=== PATIENT | male | born 1970 | race Caucasian/White ===

== ENCOUNTER → 2018-04-01 | Outpatient (CLI) | payer BC | LOC: COL.CARD 03-20 13:00 | DX: R40.20 Unspecified coma (principal) ==

== ENCOUNTER 2020-08-17 16:31 | Emergency (ER) | payer OTHER ==
[~2020-08-17] VITALS: Ht 170.2 cm; Wt 90.9 kg
[2020-08-17 16:34] VITALS: TEMP 98.6
[2020-08-17 18:04] LABS: BASO # 0.1 (0.0-0.2); BASO % 0.4 % (0.0-2.0); EOS # 0.1 (0.0-0.7); EOS % 0.3 % (0-4.0); GRAN # 15.2 (1.4-6.5); GRAN % 89.2 % (42.2-75.2); HEMATOCRIT 41.6 % (42.0-52.0); HEMOGLOBIN 13.7 g/dl (13.5-18.0); LYMPH % 5.6 % (20.0-51.0); MEAN CELL VOLUME 89 fl (80.0-100.0); MEAN CORPUSCULAR HEMOGLOBIN 29 pg (27.0-31.0); MEAN CORPUSCULAR HGB CONC 33 g/dl (33.0-37.0); MEAN PLATELET VOLUME 10.4 fl (7.4-10.4); MONO # 0.7 (0.1-0.6); MONO % 3.9 % (1.7-9.3); PLATELET COUNT 314 K/mm3 (130-400); REDCELL DISTRIBUTION WIDTH-CV 12.7 % (11.5-14.5)
[2020-08-17 18:23] LABS: ALBUMIN 4.1 gm/dL (3.5-5.0); BILIRUBIN,TOTAL 0.7 mg/dL (0.0-1.0); CALCIUM 9.1 mg/dL (8.4-10.2); CREATININE, serum 1.04 (0.66-1.25)
[2020-08-17 19:25] VITALS: BP 134/76; PULSE 76
[2020-08-17] MEDS ORDERED: ZEBETA10 MG PO (19:38)
== END 2020-08-17 19:15 ==
LOC: COL.ER 16:31
PROVIDERS: Nurse Practitioner
DX: S72.22XA Displaced subtrochanteric fracture of left femur, initial encounter for closed fracture (principal); W20.8XXA Other cause of strike by thrown, projected or falling object, initial encounter
CPT/HCPCS: J1170; J7030

== ENCOUNTER 2021-02-25 13:00 | Outpatient (RCR) | payer OTHER ==
[~2021-02-25 13:00] MED LIST: ZEBETA10 MG PO
== END 2021-02-25 14:00 | disposition home or self-care (01) ==
LOC: WSPT 13:00
DX: S72.22XD Displaced subtrochanteric fracture of left femur, subsequent encounter for closed fracture with routine healing (principal); W31.89XD Contact with other specified machinery, subsequent encounter